=== PATIENT | male | born 1975 | race Caucasian/White ===

== ENCOUNTER 2021-10-12 21:28 | Emergency (ER) | payer OTHER ==
[2021-10-12 21:38] VITALS: BP 114/68; PULSE 82; TEMP 98; BMI 23.0
== END 2021-10-13 00:27 | disposition left against medical advice (07) ==
LOC: JER 21:28
DX: T23.002A Burn of unspecified degree of left hand, unspecified site, initial encounter (principal)
CPT/HCPCS: 93005; 93010; 99281-25